=== PATIENT | male | born 1945 | race Caucasian/White ===

== ENCOUNTER 2016-11-07 12:02 | Day surgery (SDC) | payer MEDICARE, OTHER ==
[~2016-11-07] VITALS: Ht 190.5 cm; Wt 106.1 kg
[2016-11-07 12:55] VITALS: BP 142/72; PULSE 59; TEMP 97.1
[2016-11-07] MEDS ORDERED: LEADER NATUR1000 MCG PO (13:05)
[2016-11-07] MEDS ORDERED: ASPIRIN E.C. 8181 MG PO (13:06)
[2016-11-07] MEDS ORDERED: HCTZ 25MG TAB25 MG PO (13:06)
[2016-11-07] MEDS ORDERED: ZOCOR 40MG40 MG PO (13:06)
[2016-11-07] MEDS ORDERED: PROAIR HFA0.09 MG/AC IH (13:07)
[2016-11-07] MEDS ORDERED: TOPROL XL 25MG25 MG PO (13:07)
[2016-11-07] MEDS ORDERED: PEPCID 20MG TAB20 MG PO (13:08)
[2016-11-07 15:15] VITALS: BP 135/71; PULSE 59; TEMP 97.2
[2016-11-07] MEDS ORDERED: NORCO 325 MG-51 TAB PO (15:24)
[2016-11-07] MEDS ORDERED: SENOKOT S 50 MG1 TAB PO (15:26)
[2016-11-07] MEDS ORDERED: PYRIDIUM 100MG100 MG PO (15:27)
[2016-11-07 15:30] VITALS: BP 126/80; PULSE 58
== END 2016-11-07 15:58 | disposition home or self-care (01) ==
LOC: SDCO 12:02
DX: C67.9 Malignant neoplasm of bladder, unspecified (principal); R31.0 Gross hematuria; I25.119 Atherosclerotic heart disease of native coronary artery with unspecified angina pectoris; I10 Essential (primary) hypertension; J44.9 Chronic obstructive pulmonary disease, unspecified; M19.90 Unspecified osteoarthritis, unspecified site; D64.9 Anemia, unspecified; E78.5 Hyperlipidemia, unspecified; I73.9 Peripheral vascular disease, unspecified; K21.9 Gastro-esophageal reflux disease without esophagitis; Z79.01 Long term (current) use of anticoagulants; Z95.5 Presence of coronary angioplasty implant and graft; Z95.0 Presence of cardiac pacemaker; Z87.891 Personal history of nicotine dependence; Z82.49 Family history of ischemic heart disease and other diseases of the circulatory system
CPT/HCPCS: J0690; J1100; J2405; J2704; J3010; J7120; Q9967